=== PATIENT | male | born 1975 | race Caucasian/White ===

== ENCOUNTER 2018-02-03 14:46 | Emergency (ER) | payer MEDICAID, OTHER ==
[~2018-02-03] VITALS: Ht 188 cm; Wt 90.4 kg
[2018-02-03 15:04] VITALS: BP 92/61
== END 2018-02-03 17:47 | disposition home or self-care (01) ==
LOC: ER 14:50
DX: H61.22 Impacted cerumen, left ear (principal)
CPT/HCPCS: 69209